=== PATIENT | male | born 1990 | race Caucasian/White ===

== ENCOUNTER 2020-03-26 11:24 | Emergency (ER) | payer OTHER ==
[~2020-03-26] VITALS: Ht 182.9 cm; Wt 74.8 kg
== END 2020-03-26 13:44 | disposition home or self-care (01) ==
LOC: ED 11:24
DX: S43.401A Unspecified sprain of right shoulder joint, initial encounter (principal); W22.8XXA Striking against or struck by other objects, initial encounter; F17.200 Nicotine dependence, unspecified, uncomplicated; Z88.8 Allergy status to other drugs, medicaments and biological substances
CPT/HCPCS: 73030; 99283-25; A9270

== ENCOUNTER 2022-12-08 09:24 | Emergency (ER) | payer OTHER ==
[~2022-12-08] VITALS: Ht 182.9 cm; Wt 81.2 kg
[2022-12-08 09:57] LABS: BASOPHILS 0.7 % (0-2); HEMATOCRIT 42.8 % (35.0-50.0); HEMOGLOBIN 14.3 g/dL (12.0-18.0); LYMPHOCYTES 33.3 % (24-44); MCH 27.1 (27-36); MCHC 33.3 g/dl (30-36); MCV 81.3 fl (81-99); MONOCYTES 10.8 % (0-12); NEUTROPHILS 52.2 % (39-80); PLATELET COUNT 226 K/uL (140-440); RBC 5.26 M/ul (4.3-5.7); RDW 14.3 (10.5-15.0)
[2022-12-08 10:22] LABS: ALBUMIN 3.5 g/dL (3.4-5.0); ALBUMIN/GLOBULIN RATIO 1.09 (1.1-2.4); BILIRUBIN, TOTAL 0.2 ng/dL (0.2-1.0); BUN/CREATININE RATIO 10.52 (6.0-28.6); CALCIUM 8.5 mg/dL (8.5-10.1); CREATININE, SERUM 0.76 mg/dL (0.70-1.30); MAGNESIUM 1.8 mg/dL (1.8-2.4); PROTEIN, TOTAL 6.7 g/dL (6.4-8.2)
[2022-12-08] MEDS ORDERED: NAPROSYN500 MG PO (10:29)
[2022-12-08 10:40] VITALS: BP 115/78
--- NOTE | 2022-12-09 16:54 | EKG ---
[facility] [address] [facility] [place] [address] Signed Sinus bradycardia Left axis deviation Abnormal ECG No previous ECGs available Confirmed by SOFIE AVILA MD ([id number]) on 12/09/2022 4:54:18 PM Electronically Signed By: SOFIE AVILA 12/09/22 1654 PATIENT NAME: MELVI BENAVIDEZ BROCK Electrocardiogram DATE OF : 86 PHYSICIAN: SOFIE AVILA REPORT #: [id number] REPORT IS CONFIDENTIAL AND NOT TO BE RELEASED WITHOUT AUTHORIZATION
== END 2022-12-08 10:40 | disposition home or self-care (01) ==
LOC: ED 09:24
PROVIDERS: Emergency Medicine
DX: R09.1 Pleurisy (principal); F17.200 Nicotine dependence, unspecified, uncomplicated; Z88.1 Allergy status to other antibiotic agents
CPT/HCPCS: 36415; 71045; 80053; 83735; 84484; 85025; 85379; 93005; 93010; 96374; 99285-25; J1885

== ENCOUNTER 2023-03-04 09:42 | Emergency (ER) | payer OTHER ==
[~2023-03-04] VITALS: Ht 182.9 cm; Wt 84.1 kg
[~2023-03-04 09:42] MED LIST: NAPROSYN500 MG PO
[2023-03-04 10:25] LABS: BILIRUBIN, URINE NEGATIVE (negative); BLOOD/HGB, URINE SMALL (Negative); KETONE, URINE NEGATIVE (Negative); LEUK ESTERASE, URINE NEGATIVE (negative); NITRITE, URINE NEGATIVE (negative); PH, URINE 5.5 (5-7)
[2023-03-04 10:38] LABS: EPITHELIAL CELLS, URINE SQUAMOUS 1+ /lpf (0-1+); REFLEX CULTURE, URINE No (No); WHITE BLOOD CELLS, URINE 0-1 /HPF (0-5)
[2023-03-04] MEDS ORDERED: METHOCARBAMOL750 MG PO (10:51)
[2023-03-04 11:00] VITALS: BP 133/80
== END 2023-03-04 10:59 | disposition home or self-care (01) ==
LOC: ED 09:42
PROVIDERS: Emergency Medicine
DX: R10.9 Unspecified abdominal pain (principal); M79.18 Myalgia, other site; F17.200 Nicotine dependence, unspecified, uncomplicated; Z88.1 Allergy status to other antibiotic agents; Z87.442 Personal history of urinary calculi
CPT/HCPCS: 74176; 81001; 96372; 99284-25; A9270; J1885

== ENCOUNTER 2024-03-18 08:22 | Emergency (ER) | payer OTHER ==
[~2024-03-18] VITALS: Ht 182.9 cm; Wt 105.7 kg
[~2024-03-18 08:22] MED LIST changes: +METHOCARBAMOL750 MG PO
[2024-03-18] MEDS ORDERED: SODIUM CHLORIDE 0.9% 1,000 ML IV ONE (08:45)
[2024-03-18] MEDS ORDERED: HYDROmorphone HCL 1 MG/ML SYR IV PRN (08:45)
[2024-03-18] MEDS ORDERED: PANTOPRAZOLE SODIUM 40 MG/10 ML VIAL IV ONE (08:45)
[2024-03-18 08:58] LABS: BASOPHILS 1.2 % (0-2); EOSINOPHILS 3.8 % (0-6); HEMATOCRIT 42.5 % (35.0-50.0); HEMOGLOBIN 14.2 g/dL (12.0-18.0); LYMPHOCYTES 27.4 % (24-44); MCH 27.1 (27-36); MCHC 33.4 g/dl (30-36); MCV 81.3 fl (81-99); MONOCYTES 8.6 % (0-12); PLATELET COUNT 210 K/uL (140-440); RBC 5.23 M/ul (4.3-5.7); RDW 14.1 (10.5-15.0)
[2024-03-18 09:17] LABS: ALBUMIN 3.3 g/dL (3.4-5.0); ALBUMIN/GLOBULIN RATIO 1.06 (1.1-2.4); ANION GAP 14.9 (7-21); BILIRUBIN, TOTAL 0.3 ng/dL (0.2-1.0); BUN/CREATININE RATIO 18.91 (6.0-28.6); CREATININE, SERUM 0.74 mg/dL (0.70-1.30); POTASSIUM 3.9 mmol/L (3.5-5.1); PROTEIN, TOTAL 6.4 g/dL (6.4-8.2)
[2024-03-18 09:41] LABS: LACTIC ACID, BLOOD 0.8 mmol/L (0.4-2.0)
[2024-03-18 10:35] LABS: BILIRUBIN, URINE NEGATIVE (negative); BLOOD/HGB, URINE NEGATIVE (Negative); KETONE, URINE NEGATIVE (Negative); LEUK ESTERASE, URINE NEGATIVE (negative); NITRITE, URINE NEGATIVE (negative)
[2024-03-18] MEDS ORDERED: OMEPRAZOLE20 MG PO (12:04)
[2024-03-18] MEDS ORDERED: ONDANSETRON ODT8 MG PO (12:04)
[2024-03-18] MEDS ORDERED: OXYCODONE HCL5 MG PO (12:04)
[2024-03-18] MEDS ORDERED: LIDOCAINE & ANTACID 35 ML BTL PO ONE (12:15)
[2024-03-18 12:33] VITALS: BP 114/64
--- NOTE | 2024-03-19 14:59 | EKG ---
[facility] [address] [facility] [place] [address] Signed Sinus bradycardia with sinus arrhythmia Left axis deviation Abnormal ECG When compared with ECG of 08-DEC-2022 09:23, T wave inversion no longer evident in Inferior leads Confirmed by Gaurav Vera MD ([id number]) on 03/19/2024 2:59:25 PM Electronically Signed By: GAURAV VERA MD 03/19/24 1459 PATIENT NAME: MELVI BENAVIDEZ BROCK Electrocardiogram DATE OF : [birth year] PHYSICIAN: GAURAV VERA MD REPORT #: [id number] REPORT IS CONFIDENTIAL AND NOT TO BE RELEASED WITHOUT AUTHORIZATION
== END 2024-03-18 12:33 | disposition home or self-care (01) ==
LOC: ED 08:22
PROVIDERS: Emergency Medicine
DX: R10.13 Epigastric pain (principal); R10.11 Right upper quadrant pain; F17.200 Nicotine dependence, unspecified, uncomplicated; Z88.1 Allergy status to other antibiotic agents
CPT/HCPCS: 36415; 71260; 74177; 76705; 80053; 81003; 83605; 83690; 84484; 85025; 93005; 93010; 99284-25; J1171; J2470; J7030; Q9967

== ENCOUNTER 2024-09-30 08:30 | Emergency (ER) | payer BC ==
[~2024-09-30] VITALS: Ht 182.9 cm; Wt 75.0 kg
[~2024-09-30 08:30] MED LIST changes: +OMEPRAZOLE20 MG PO; +ONDANSETRON ODT8 MG PO; +OXYCODONE HCL5 MG PO; +PREDNISONE20 MG PO
[2024-09-30] MEDS ORDERED: HYDROmorphone HCL 1 MG/ML SYR IV PRN ×2 (08:45→10:00)
[2024-09-30] MEDS ORDERED: KETOROLAC TROMETHAMINE 30 MG/ML VIAL IV ONE (08:45)
[2024-09-30] MEDS ORDERED: SODIUM CHLORIDE 0.9% 1,000 ML IV ONE (08:45)
[2024-09-30 08:47] LABS: BASOPHILS 0.8 % (0.2-1.2); EOSINOPHILS 3.5 % (0.8-7.0); LYMPHOCYTES 28.1 % (21.8-53.1); MCH 26.7 PG (25.7-32.2); MCHC 32.8 g/dL (32.3-36.5); MCV 81.2 fL (79.0-92.2); MONOCYTES 9.8 % (5.3-12.2); NEUTROPHILS 57.3 % (34.0-67.9); RBC 5.06 M/uL (4.63-6.08)
[2024-09-30 09:02] LABS: ALT (SGPT) 35.0 U/L (14-59); AST (SGOT) 17.0 U/L (15-37); GLOMERULAR FILTRATION RATE,EST 130.0 mL/min (>60); PROTEIN, TOTAL 6.6 g/dL (6.4-8.2); UREA NITROGEN 11.0 mg/dL (7-18)
[2024-09-30 12:58] LABS: BLOOD/HGB, URINE NEGATIVE (Negative); KETONE, URINE NEGATIVE (Negative); LEUK ESTERASE, URINE NEGATIVE (negative); NITRITE, URINE NEGATIVE (negative)
[2024-09-30] MEDS ORDERED: HYDROCODON-ACE1 EA11 PO (14:09)
[2024-09-30 14:24] VITALS: BP 115/49
--- NOTE | 2024-10-02 15:12 | EKG ---
[facility] [address] [facility] [place] [address] Signed Sinus bradycardia with marked sinus arrhythmia Left anterior fascicular block Abnormal ECG When compared with ECG of 29-JUL-2024 08:56, No significant change was found Confirmed by Gaurav Vera MD ([id number]) on 10/02/2024 3:11:57 PM Electronically Signed By: GAURAV VERA MD 10/02/24 1512 PATIENT NAME: MELVI BENAVIDEZ BROCK Electrocardiogram DATE OF : 86 PHYSICIAN: GAURAV VERA MD REPORT #: [id number] REPORT IS CONFIDENTIAL AND NOT TO BE RELEASED WITHOUT AUTHORIZATION
== END 2024-09-30 14:24 | disposition home or self-care (01) ==
LOC: ED 08:30
PROVIDERS: Emergency Medicine
DX: R10.11 Right upper quadrant pain (principal); F17.200 Nicotine dependence, unspecified, uncomplicated; Z86.73 Personal history of transient ischemic attack (TIA), and cerebral infarction without residual deficits; Z87.442 Personal history of urinary calculi; Z88.1 Allergy status to other antibiotic agents
CPT/HCPCS: 36415; 71045; 74177; 76705; 80053; 81003; 83690; 85025; 85379; 93005; 93010; 96374; 96375; 96376; 99285-25; J1171; J1885; J2405; J7030; Q9967

== ENCOUNTER 2024-10-18 07:14 | Emergency (ER) | payer BC ==
[~2024-10-18] VITALS: Ht 182.9 cm; Wt 69.9 kg
[~2024-10-18 07:14] MED LIST changes: +HYDROCODON-ACE1 EA11 PO
--- OUTSIDE RECORDS SUMMARY | 2024-10-18 07:21 | XMS ---
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 E.D. VISIT COUNT (12 MO.) [address] [facility] TOTAL 4 NOTE: Visits indicate total known visits. ED/UCC VISIT TRACKING (12 MO.) 10/18/2024 07:15 [facility] TYPE: Emergency COMPLAINT: - EYE PROBLEM 09/30/2024 08:30 [facility] TYPE: Emergency COMPLAINT: - ABDOMINAL PAIN DIAGNOSES: - Allergy status to other antibiotic agents - Nicotine dependence, unspecified, uncomplicated - Personal history of transient ischemic attack (TIA), and cerebral infarction without residual deficits - Personal history of urinary calculi - Right upper quadrant pain 07/29/2024 08:58 [facility] TYPE: Emergency COMPLAINT: - CHEST PAIN DIAGNOSES: - Allergy status to other antibiotic agents - Chest pain, unspecified - Nicotine dependence, unspecified, uncomplicated - Radiculopathy, cervical region 03/18/2024 08:23 [facility] TYPE: Emergency COMPLAINT: - CHEST PAIN DIAGNOSES: - Allergy status to other antibiotic agents - Epigastric pain - Nicotine dependence, unspecified, uncomplicated - Right upper quadrant pain INPATIENT VISIT TRACKING (12 MO.) No inpatient visits to display in this time frame [email or web address]
[2024-10-18] MEDS ORDERED: TETRACAINE HCL 0.5% 4 ML BTL OS PRN (07:30)
[2024-10-18] MEDS ORDERED: FLUORESCEIN SOD 1 EA STRP OS ONE (07:30)
[2024-10-18] MEDS ORDERED: ONDANSETRON ODT4 MG PO ×2 (07:43→07:50)
[2024-10-18] MEDS ORDERED: ERYTHROMYCIN 3.5 GM HOME.PACK OP ONE (07:45)
[2024-10-18] MEDS ORDERED: HYDROCODON-ACE1 EA10 PO (07:50)
[2024-10-18] MEDS ORDERED: HYDROCODONE/ACETA 5/325 TAB PO ONE (08:00)
[2024-10-18] MEDS ORDERED: ONDANSETRON 4 MG TAB ODT SL ONE (08:00)
[2024-10-18 08:12] VITALS: BP 121/74
[2024-10-18] MEDS ORDERED: ERYTHROMYCIN 3.5 GM HOME.PACK OP SCH (10:00)
== END 2024-10-18 08:12 | disposition home or self-care (01) ==
LOC: ED 07:14
DX: H16.132 Photokeratitis, left eye (principal); F17.200 Nicotine dependence, unspecified, uncomplicated; Z86.73 Personal history of transient ischemic attack (TIA), and cerebral infarction without residual deficits; Z88.1 Allergy status to other antibiotic agents; Z79.899 Other long term (current) drug therapy
CPT/HCPCS: 99283; A9270